=== PATIENT | male | born 1940 | race Caucasian/White ===

== ENCOUNTER 2020-05-02 20:42 | Emergency (ER) | payer OTHER ==
[~2020-05-02] VITALS: Ht 172.7 cm; Wt 82.5 kg
[2020-05-03] MEDS ORDERED: BUMETANIDE1 MG PO (00:06)
[2020-05-03] MEDS ORDERED: METOPROLOL TART25 MG PO (00:06)
[2020-05-03] MEDS ORDERED: AMLODIPINE BES2.5 MG PO (00:06)
[2020-05-03] MEDS ORDERED: K-TAB10 MEQ PO (00:06)
[2020-05-03] MEDS ORDERED: ATORVASTATIN CA40 MG PO (00:06)
[2020-05-03] MEDS ORDERED: TRIAMCINOLONE A15 G3 TOP (00:07)
[2020-05-03] MEDS ORDERED: FLUOROURACIL40 GM TOP (00:07)
== END 2020-05-03 01:33 | disposition left against medical advice (07) ==
LOC: ED 20:42
DX: Z53.21 Procedure and treatment not carried out due to patient leaving prior to being seen by health care provider (principal)